=== PATIENT | male | born 1970 | race Caucasian/White ===

== ENCOUNTER 2024-08-29 10:48 | Emergency (ER) | payer BC ==
[2024-08-29] MEDS ORDERED: Lidocaine 2% 5 ML SDV INFILT ONE (10:49)
[2024-08-29] MEDS: Diphtheria,Pertussis(Acell),Tetanus Vaccine 0.5 ML Syringe IM ONE (11:59)
== END 2024-08-29 12:05 | disposition home or self-care (01) ==
LOC: FB.ED 10:48
DX: S01.81XA Laceration without foreign body of other part of head, initial encounter (principal); F17.210 Nicotine dependence, cigarettes, uncomplicated; Z23 Encounter for immunization; X58.XXXA Exposure to other specified factors, initial encounter
CPT/HCPCS: 12013; 90471; 90715; 99282-25

== ENCOUNTER 2025-01-26 06:24 | Day surgery (SDC) | payer BC ==
[~2025-01-26 06:24] MED LIST: Sodium Chloride 0.9% 10 ML Syringe FLUSH PRN
[2025-01-26] MEDS ORDERED: Midazolam 1 MG/ML 2 ML SDV IV ONE (06:25)
[2025-01-26] MEDS ORDERED: Phenylephrine 0.5% Nasal Spray 15 ML Bot NAS ONE (06:25)
[2025-01-26] MEDS ORDERED: Propofol 200 MG/20 ML SDV IV ONE (06:25)
[2025-01-26] MEDS ORDERED: Glycopyrrolate 0.2 MG/ML 5 ML MDV IV ONE (06:25)
[2025-01-26] MEDS ORDERED: Ketamine 500 mg/10 ML MDV IV ONE (06:25)
[2025-01-26] MEDS: Lactated Ringers 1,000 ML IV SCH (07:15)
[2025-01-26] MEDS: Simethicone Drops 40 MG/0.6 ML 30 ML Bottle ONE (07:40)
== END 2025-01-26 09:32 | disposition home or self-care (01) ==
LOC: FB.SDS 06:24
PROVIDERS: ATTEND Surgery
DX: Z12.11 Encounter for screening for malignant neoplasm of colon (principal); D12.2 Benign neoplasm of ascending colon; D12.6 Benign neoplasm of colon, unspecified; K63.5 Polyp of colon; K62.1 Rectal polyp; Z87.891 Personal history of nicotine dependence
CPT/HCPCS: 00811; 88305; A9270-GY; J1596; J2250; J2704; J3490; J7120